=== PATIENT | male | born 1945 | race Caucasian/White ===

== ENCOUNTER 2017-08-23 06:59 | Day surgery (SDC) | payer MEDICARE ==
[~2017-08-23] VITALS: Ht 195.6 cm; Wt 85.5 kg
[~2017-08-23 06:59] MED LIST: ASCO500 PO; ASPI81CH PO; CEPH500 PO; CHOL10002 PO; CIPR500 PO; CITRACAL + BON1 EACH; DOC250 PO; DOCU100 PO; FINA5; FINA5 PO; FISH OIL 1,0001 EAC1 PO; LEVO750 PO; OXYC5 PO; SELENIUM200 MC1 PO; SELENIUM200 MC2; Saw Palmetto450 MG PO; Saw Palmetto500 MG PO; TAMS.4ER PO
[2018-03-28] MEDS ORDERED: Selenium50 MCG PO (08:51)
[2018-03-28] MEDS ORDERED: PSYLLIUM PO (08:54)
[2018-03-28] MEDS ORDERED: [UNRECOGNIZED DRUG - OTHER] PO (08:54)
[2018-03-28] MEDS ORDERED: POLYOX WSR-3011 GM PO (08:54)
[2018-03-28] MEDS ORDERED: PROBIOTIC1 EAC3 PO (08:55)
== END 2017-08-23 09:29 | disposition home or self-care (01) ==
LOC: ORSCSDS 06:59
PROVIDERS: Internal Medicine Gastroenterology
PROC: 0DBM8ZX Excision of Descending Colon, Via Natural or Artificial Opening Endoscopic, Diagnostic (ICD-10-PCS; principal; 2017-08-23 08:15)
PROC: 0DBL8ZX Excision of Transverse Colon, Via Natural or Artificial Opening Endoscopic, Diagnostic (ICD-10-PCS; principal; 2017-08-23 08:15)
DX: R19.4 Change in bowel habit (principal); D12.3 Benign neoplasm of transverse colon; D12.4 Benign neoplasm of descending colon; F17.210 Nicotine dependence, cigarettes, uncomplicated; I10 Essential (primary) hypertension; Z79.82 Long term (current) use of aspirin; Z79.899 Other long term (current) drug therapy
CPT/HCPCS: 88305; J0330; J1980; J2405; J7120

== ENCOUNTER 2017-09-04 13:01 | Emergency (ER) | payer MEDICARE ==
[~2017-09-04] VITALS: Ht 195.6 cm; Wt 81.7 kg
[2017-09-04 18:25] LABS: Calcium, Ionized (POC) 1.14 mmol/L (1.10-1.46); Chloride (POC) 99 mmol/L (98-108); Creatinine (POC) 1.2 mg/dL (0.8-1.3); Glucose (ISTAT POC) 93 mg/dL (70-99); Hemoglobin (POC) 14.6 g/dL (13.5-17.5); Potassium (POC) 4.1 mmol/L (3.5-5.5); Sodium (POC) 139 mmol/L (135-148); Total CO2 (POC) 28 mmol/L (21-32)
[2017-09-04 19:49] LABS: Source, Urine Clean Catch
[2017-09-04 19:54] LABS: Bilirubin, Urine Neg (Neg); Blood, Urine Neg (Neg); Glucose Qualitative, Urine Neg (Neg); Ketones, Urine Neg (Neg); Leukocyte Esterase, Urine 3+ (Neg); Nitrite, Urine Neg (Neg); Protein, Urine Neg (Neg); Specific Gravity, Urine 1.015 (1.003-1.022); Urobilinogen, Urine NORM (Normal)
[2017-09-04 20:00] LABS: Appearance, Urine Clear (Clear); Color, Urine Pale Yellow (P-Yellow)
[2017-09-04 20:01] LABS: Bacteria Not Seen /hpf; Red Blood Cells, Urine Not Seen /hpf (0-2); Squamous Epithelial Cells Not Seen /hpf (Few); White Blood Cells, Urine Not Seen /hpf (0-5)
[2018-03-28] MEDS ORDERED: Selenium50 MCG PO (08:51)
[2018-03-28] MEDS ORDERED: PSYLLIUM PO (08:54)
[2018-03-28] MEDS ORDERED: POLYOX WSR-3011 GM PO (08:54)
[2018-03-28] MEDS ORDERED: [UNRECOGNIZED DRUG - OTHER] PO (08:54)
[2018-03-28] MEDS ORDERED: PROBIOTIC1 EAC3 PO (08:55)
== END 2017-09-04 20:17 | disposition home or self-care (01) ==
LOC: ER 13:01
PROVIDERS: Physician Assistant
DX: R42 Dizziness and giddiness (principal); Z88.5 Allergy status to narcotic agent; Z79.899 Other long term (current) drug therapy; Z79.82 Long term (current) use of aspirin; Z87.891 Personal history of nicotine dependence
CPT/HCPCS: 36415; 51798; 74019; 80047; 81001; 85014; 87077; 87086; 87186; 96360; 96361; 99284; J7030

== ENCOUNTER 2018-04-02 06:21 | Day surgery (SDC) | payer MEDICARE ==
[~2018-04-02] VITALS: Ht 195.6 cm; Wt 82.1 kg
[~2018-04-02 06:21] MED LIST changes: +POLYOX WSR-3011 GM PO; +PROBIOTIC1 EAC3 PO; +PSYLLIUM PO; +Selenium50 MCG PO; +[UNRECOGNIZED DRUG - OTHER] PO
== END 2018-04-02 22:40 | disposition home or self-care (01) ==
LOC: ORSCMMR 06:21 → ORD 08:15 → ORSCMMR 08:15
PROVIDERS: Surgery
PROC: 0YU50JZ Supplement Right Inguinal Region with Synthetic Substitute, Open Approach (ICD-10-PCS; principal; 2018-04-02 08:15)
DX: K40.90 Unilateral inguinal hernia, without obstruction or gangrene, not specified as recurrent (principal); Z87.891 Personal history of nicotine dependence
CPT/HCPCS: C1781; J0690; J1100; J2250; J2405; J3010; J7120

== ENCOUNTER 2020-05-12 07:51 | Day surgery (SDC) | payer MEDICARE, OTHER ==
[~2020-05-12] VITALS: Ht 182.9 cm; Wt 85.7 kg
[~2020-05-12 07:51] MED LIST changes: +Aspir 8181 MG PO; +FISH OIL 1,2001 EAC7 PO; +METAMUCIL POWD575 GM PO; +MIRALAX17 GM PO; +Selenomax200 MCG PO; +Silvadene20 GM TOP; +VITAMIN D31000 UNI1 PO; +Vitamin C100 M1 PO
== END 2020-05-12 09:59 | disposition home or self-care (01) ==
LOC: ORSCSDS 07:51
PROVIDERS: Ophthalmology
PROC: 08RK3JZ Replacement of Left Lens with Synthetic Substitute, Percutaneous Approach (ICD-10-PCS; principal; 2020-05-12 09:00)
DX: H25.12 Age-related nuclear cataract, left eye (principal)
CPT/HCPCS: J2001; J2250; J3010; J3301; J7040; V2632

== ENCOUNTER → 2021-03-16 | Outpatient (CLI) | payer MEDICARE, OTHER | END | disposition home or self-care (01) | LOC: LAB 06:00 → LAB SHORT 06:00 | DX: R82.998 Other abnormal findings in urine (principal) | CPT/HCPCS: 87077; 87086; 87186 ==

== ENCOUNTER → 2021-11-01 | Outpatient (CLI) | payer MEDICARE, OTHER | END | disposition home or self-care (01) | LOC: LAB 10:35 → LAB SHORT 10:35 | DX: R30.0 Dysuria (principal) | CPT/HCPCS: 87077; 87086; 87186 ==